=== PATIENT | female | born 1965 | race Caucasian/White ===

== ENCOUNTER → 2016-07-25 | Outpatient (CLI) | payer BC ==
--- NOTE | 2016-07-26 17:04 | Diagnostic Imaging Report ---
EXAMINATION: Left lower extremity duplex venous ultrasound. TECHNIQUE: DVT protocol. Multiple sonographic images with color Doppler and waveform interrogation were performed of the left lower extremity veins with compression and augmentation maneuvers. INDICATION: Left leg pain. FINDINGS: The left lower extremity veins from the groin to below the knee veins were examined with normal color-flow, compressibility and waveform demonstrated. The great saphenous vein is patent. There is a hypoechoic slightly heterogenous fluid collection seen abutting the posterior muscles in the upper calf into the medial aspect of the popliteal fossa measuring 11 x 1.7 x 4.4 CM, likely related to a ruptured Martinez's cyst. IMPRESSION: No evidence of DVT in the left lower extremity. Fluid collection posterior to the knee and the in the upper calf likely related to a ruptured Martinez's cyst. Dictated by: Dictated on workstation # [id number]
== END ==
LOC: RAD 11:59
PROVIDERS: ATTEND Nurse Practitioner Family
DX: R22.42 Localized swelling, mass and lump, left lower limb (principal); D68.2 Hereditary deficiency of other clotting factors

== ENCOUNTER → 2016-11-11 | Outpatient (CLI) | payer BC ==
--- NOTE | 2016-11-14 14:39 | Diagnostic Imaging Report ---
Bilateral screening mammogram 2D views with tomosynthesis. The current study was also evaluated with a Computer Aided Detection (CAD) system. INDICATION: Screening. No current complaints stated on the questionnaire. COMPARISON: 01/26/2016. FINDINGS: The breasts are composed of heterogeneously dense parenchyma which may decrease mammographic sensitivity. There is an asymmetry with apparent architectural distortion along the right MLO view posteriorly above the nipple line which appears to persist on the tomographic views. No definitive correlate on the CC projection. The left breast demonstrates no definite change. IMPRESSION: Focal compression views and ultrasound evaluation for focal asymmetry and question of architectural distortion along the central slightly superior aspect of the right MLO view. ACR BI-RADS Category 0: Incomplete. (Needs additional imaging evaluation). Result letter will be mailed to the patient. Note: At least 10% of breast cancer is not imaged by mammography. Dictated by: Dictated on workstation # [id number]
== END ==
LOC: RAD 10:35
PROVIDERS: ATTEND Nurse Practitioner Family
DX: Z12.31 Encounter for screening mammogram for malignant neoplasm of breast (principal)
CPT/HCPCS: 77067

== ENCOUNTER → 2016-12-19 | Outpatient (CLI) | payer BC ==
--- NOTE | 2016-12-19 21:19 | Diagnostic Imaging Report ---
Right breast ultrasound. INDICATION: Right breast asymmetry. FINDINGS: The four quadrants and retroareolar region of the right breast was scanned with no underlying abnormality seen. IMPRESSION: Negative study. Asymmetry seen on mammography is probably summation artifact of parenchyma. Six-month follow-up right mammogram is recommended to ensure no adverse development. ACR BI-RADS Category 3: Probably benign findings. Dictated by: Dictated on workstation # [id number]
--- NOTE | 2016-12-19 22:00 | Diagnostic Imaging Report ---
Diagnostic mammogram of the right breast with tomography. INDICATION: Asymmetry along the right MLO view with question of architecture distortion. FINDINGS: True lateral view and compression view with tomography is performed with less prominent asymmetry seen. It does not completely resolve, however, which may relate to the background dense parenchyma. IMPRESSION: Less prominent asymmetry along the right MLO view which may relate to summation artifact of parenchyma. Ultrasound evaluation pending. ACR BI-RADS Category 0: Incomplete. (Needs additional imaging evaluation). Dictated by: Dictated on workstation # [id number]
== END ==
LOC: RAD 07:46
PROVIDERS: ATTEND Nurse Practitioner Family
DX: N64.89 Other specified disorders of breast (principal)
CPT/HCPCS: 76641

== ENCOUNTER → 2017-07-14 | Outpatient (CLI) | payer BC ==
--- NOTE | 2017-07-14 17:57 | Diagnostic Imaging Report ---
Unilateral diagnostic right mammogram. INDICATION: Follow-up exam. This study was compared to the prior exams of 12/19/2016, 11/11/2016, 06/19/2015, and 09/19/2013. At this time, there are no current complaints. The current study was also evaluated with a Computer Aided Detection (CAD) system. FINDINGS: The previous exam did raise the question of an architectural distortion in the midportion of the right breast. The diagnostic mammogram and ultrasound exam performed on 12/19/2016 suggested that the asymmetric density was related to superimposition of the fibroglandular tissue. On this study, the overall appearance of the right breast does not seem to have changed significantly. The fibroglandular tissue in the right breast is dense and this does limit the sensitivity of this exam. A repeat ultrasound exam is pending for further study. IMPRESSION: There is no evidence for malignancy. Ultrasound is pending for further study. ACR BI-RADS Category 0: Incomplete. (Needs additional imaging evaluation). Result letter will be mailed to the patient. Note: At least 10% of breast cancer is not imaged by mammography. Dictated by: Dictated on workstation # [id number]
--- NOTE | 2017-07-14 18:00 | Diagnostic Imaging Report ---
EXAMINATION: Right breast ultrasound, complete. INDICATION: Abnormal mammogram. FINDINGS: The diagnostic mammogram and ultrasound exam performed on 12/19/2016 failed to show any sign of malignancy. The diagnostic mammogram performed earlier today indicated that the right breast seems stable. On this exam, there is still no discrete solid or cystic mass within the right breast. There is no shadowing to suggest architectural distortion either. I suspect that the abnormal density seen on the initial mammogram was secondary to superimposition of the fibroglandular tissue. IMPRESSION: 1. There is no evidence for malignancy. 2. The patient should have her annual bilateral mammogram on schedule in December/January of this year. ACR BI-RADS Category 3: Probably benign findings. Dictated by: Dictated on workstation # [id number]
== END ==
LOC: RAD 08:30
PROVIDERS: ATTEND Nurse Practitioner Family
DX: N64.89 Other specified disorders of breast (principal)
CPT/HCPCS: 76641

== ENCOUNTER 2017-11-22 06:28 | Outpatient (CLI) | payer BC ==
[~2017-11-22] VITALS: Ht 172.7 cm; Wt 83.9 kg
[2017-11-22] MEDS ORDERED: MULT-166 PO (10:03)
[2017-11-22] MEDS ORDERED: ASPI-586 PO (10:03)
[2017-11-22] MEDS ORDERED: CYCL5TAB PO (10:03)
[2017-11-22] MEDS ORDERED: FLUO10CA29 PO (10:03)
[2017-11-24] MEDS ORDERED: ACHD5005 PO (12:07)
== END 2017-11-22 10:13 | disposition home or self-care (01) ==
LOC: PREOP 06:28
PROVIDERS: ATTEND Surgery
DX: Z01.818 Encounter for other preprocedural examination (principal)

== ENCOUNTER 2017-11-24 10:13 | Day surgery (SDC) | payer BC ==
[~2017-11-24] VITALS: Ht 172.7 cm; Wt 83.9 kg
[~2017-11-24 10:13] MED LIST: ASPI-586 PO; CYCL5TAB PO; FLUO10CA29 PO; MULT-166 PO
[2017-11-24] MEDS ORDERED: LACTATED RINGERS 1,000 ML IV PRN (10:29)
[2017-11-24] MEDS ORDERED: ceFAZolin 2 GM IV Premixed 50 ML IV ONE (10:30)
[2017-11-24 10:40] VITALS: BP 107/77
--- NOTE | 2017-11-24 10:42 | Progress Note-Pre Operative ---
Pre-Operative Progress Note H&P Reviewed The H&P was reviewed, patient examined and no changes noted. Date Seen by Provider: Nov 03, 2017 Time Seen by Provider: 14:00 Date H&P Reviewed: Nov 24, 2017 Time H&P Reviewed: 10:41 Pre-Operative Diagnosis: Sebaceous cystpresternal area BERONICA DELVALLE MD Nov 24, 2017 10:42 am
[2017-11-24] MEDS ORDERED: CATHETER FLUSH 10 ML SYR IV PRN (10:45)
[2017-11-24] MEDS ORDERED: CEPH250T PO (10:49)
[2017-11-24] MEDS ORDERED: fentaNYL INJECTION 100 MCG/2 ML AMP ONE (11:23)
[2017-11-24] MEDS ORDERED: DEXAMETHASONE 10 MG/ML (DECADRON) 1 ML VIAL ONE (11:23)
[2017-11-24] MEDS ORDERED: ONDANSETRON 4 MG/2 ML (SDV) Z0FRAN ONE (11:23)
[2017-11-24] MEDS ORDERED: BUP/EPI 0.5% 1:200,000 (SENSORCAINE) 30 ML VIAL ONE (11:23)
[2017-11-24] MEDS ORDERED: MIDAZOLAM 2 MG/2 ML (VERSED) VIAL ONE (11:23)
[2017-11-24] MEDS ORDERED: LIDOCAINE PF 2% 5 ML (XYLOCAINE) VIAL ONE (11:23)
[2017-11-24] MEDS ORDERED: proPOfol 200 MG/20 ML (DIPRIVAN) VIAL IV ONE (11:23)
[2017-11-24] MEDS ORDERED: SEVOFLURANE (ULTANE) 15 ML INHAL SOLN ONE (11:27)
[2017-11-24] MEDS ORDERED: GLYCOPYRROLATE 0.2 MG/ML (ROBINUL) 2 ML VIAL ONE (11:45)
[2017-11-24] MEDS ORDERED: ACHD5005 PO (12:07)
--- NOTE | 2017-11-24 12:07 | Operative Report ---
Operative Report Date of Procedure/Surgery Nov 24, 2017 Surgeon (s) BERONICA DELVALLE MD Editor Producer (s): N/A Post-Operative Diagnosis Same Procedure Performed Excision Description of Procedure Anesthesia Type: General Estimated blood loss (mL): Minimal Specimen(s) collected/removed Sebaceous cyst Description of the Procedure Indication for the procedure: This lady presented with a sebaceous over the presternal region and requested excision. Informed consent was obtained after reviewing the operative details and complications of postoperative wound infection, hematoma etc. Description of the procedure: She was placed supine on the operative table and general anesthesia induced. Ancef was administered intravenously as prophylaxis against wound infection. The area was prepared and draped in the usual sterile manner. Preemptive analgesia was established using 0.5 percent Marcaine with epinephrine. An elliptical incision about 4 cm in length was made in a transverse fashion and the cyst excised intact. Hemostasis was achieved using cautery and the incision closed using 3-0 Vicryl for the dermal layer and 4-0 Vicryl for skin, in a subcuticular fashion. A nonadherent dressing was then applied. She tolerated the procedure well, was extubated in the operating room and taken to the recovery room in a stable condition. Findings of the Procedure see op report Allergies and Home Medications Allergies Coded Allergies: No Known Drug Allergies (Unverified , 11/22/17) Home Medications Aspirin 81 Mg Tablet.dr, 81 MG PO DAILY, (Reported) Cephalexin 250 Mg Tablet, 250 MG PO BID, (Reported) Fluoxetine HCl 10 Mg Capsule, 10 MG PO DAILY, (Reported) Multivitamin with Minerals 1 Each Tablet, 1 EACH PO DAILY, (Reported) Patient Home Medication List Home Medication List Reviewed: Yes BERONICA DELVALLE MD Nov 24, 2017 12:07 pm
--- NOTE | 2017-11-24 12:08 | Discharge Inst-Simple/Standard ---
Discharge Inst-Standard Discharge Medications New, Converted or Re-Newed RX: RX on Chart Patient Instructions/Follow Up Plan of Care/Instructions/FU: Dressings off in 48 hours. Follow-up if needed. No sutures to be removed Activity as Tolerated: Yes Discharge Diet: No Restrictions BERONICA DELVALLE MD Nov 24, 2017 12:08 pm
[2017-11-24] MEDS ORDERED: fentaNYL INJECTION 100 MCG/2 ML AMP IVP PRN (12:15)
[2017-11-24] MEDS ORDERED: ONDANSETRON 4 MG/2 ML (SDV) Z0FRAN IVP PRN (12:15)
[2017-11-24 13:05] VITALS: BP 103/58
[2017-11-24 13:35] VITALS: BP 103/58
[2017-11-24 14:05] VITALS: BP 101/67
--- NOTE | 2017-11-24 14:07 | Anesthesia-General Post-Op ---
General Patient Condition Mental Status/LOC: Same as Preop Cardiovascular: Satisfactory Nausea/Vomiting: Absent Respiratory: Satisfactory Pain: Controlled Complications: Absent Post Op Complications Complications None Follow Up Care/Instructions Patient Instructions None needed. Anesthesia/Patient Condition Patient Condition Patient is doing well, no complaints, stable vital signs, no apparent adverse anesthesia problems. No complications reported per nursing. EMANUEL GALLGAHER CRNA Nov 24, 2017 14:06
[2017-11-24 14:10] VITALS: BP 101/67
--- OUTSIDE RECORDS SUMMARY | 2017-11-24 18:15 | XMS REPORT | CCD ---
Author Author Brook Nolan Organization [facility] Address [address] [place] [address] Phone Care Team Providers Care Software Validation Technician Name Role Phone PP Unavailable CCM Unavailable Summary Purpose Interface Exchange Insurance Providers Payer name Policy type / Coverage type Covered libertarian ID Effective Begin Date Effective End Date Blue Cross Blue [facility] Blue Cross/Blue Shield [id number] 2016 Unknown Family history Runs in the family Diagnosis Age At Onset Bleeding disorders Unknown Colon cancer Unknown Breast cancer Unknown Mother Diagnosis Age At Onset Arthritis Unknown Father Diagnosis Age At Onset Diabetes mellitus Type 2 Unknown Arthritis Unknown Hypertension Unknown Social History Social History Element Codes Description Effective Dates Marital status Unknown August 08/21/2015 Number of children Unknown 5 08/21/2015 Employment Unknown 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 Active 07/25/2016 Unknown Pain in left leg ICD-9 : 729.5 ICD-10: M79.605 Active 07/25/2016 Unknown Encounter for general adult medical examination without abnormal findings ICD-9: V70.9 ICD-10: Z00.00 Active 08/20/2015 Unknown Problems Condition Codes Effective Dates Condition Status Allergic contact dermatitis due to plants, except food ICD-9: 692.6 ICD-10: L23.7 09/16/2016 Active Attention and concentration deficit ICD-9: 799.51 ICD-10: R41.840 04/28/2016 Active 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 07/25/2016 Active Pain in left leg ICD-9 : 729.5 ICD-10: M79.605 07/25/2016 Active Encounter for general adult medical examination without abnormal findings ICD-9: V70.9 ICD-10: Z00.00 08/20/2015 Active Medications Medication Codes Instructions Start Date Stop Date Status Fill Instructions Prozac 10 mg capsule RxNorm: 266658 1 Capsule(s) PO as needed for PMS symptoms 04/26/2017 09/22/2017 Active Adderall 5 mg tablet RxNorm: 174401 3 Tablet(s) (15mg) PO QAM and 2 Tablet (10mg) PO QPM 12/19/2016 01/17/2017 Inactive Prozac 10 mg capsule RxNorm: 810582 1 Capsule(s) PO as needed for PMS symptoms 11/23/2016 04/21/2017 Inactive Adderall 5 mg tablet RxNorm: 613188 3 Tablet(s) (15mg) PO QAM and 2 Tablet (10mg) PO QPM 10/18/2016 11/16/2016 Inactive Prozac 10 mg capsule RxNorm: 560762 1 Capsule(s) PO as needed for PMS symptoms 10/18/2016 11/16/2016 Inactive Adderall 5 mg tablet RxNorm: 920324 3 Tablet(s) (15mg) PO QAM and 2 Tablet (10mg) PO QPM 09/16/2016 10/15/2016 Inactive Adderall 5 mg tablet RxNorm: 254039 3 Tablet(s) (15mg) PO QAM and 1 Tablet (5mg) PO QPM 07/25/2016 08/23/2016 Inactive Adderall 5 mg tablet RxNorm: 481358 3 Tablet(s) (15mg) PO QAM and 1 Tablet (5mg) PO QPM 06/20/2016 07/24/2016 Inactive Adderall 5 mg tablet RxNorm: 283210 3 Tablet(s) 15mg PO QAM and 1 tab 5mg in the pm 04/29/2016 05/28/2016 Inactive Adderall 5 mg tablet RxNorm: 811325 3 Tablet(s) 15mg PO QAM and 1 tab 5mg in the pm 03/25/2016 04/23/2016 Inactive Adderall 5 mg tablet RxNorm: 120283 3 Tablet(s) 15mg PO QAM and 1 tab 5mg in the pm 02/17/2016 03/17/2016 Inactive Adderall 5 mg tablet RxNorm: 332158 3 Tablet(s) 15mg PO QAM and 1 tab 5mg in the pm 01/20/2016 02/16/2016 Inactive Adderall 5 mg tablet RxNorm: 499180 3 Tablet(s) 15mg PO QAM and 1 tab 5mg in the pm 12/16/2015 01/14/2016 Inactive Adderall 5 mg tablet RxNorm: 542819 3 Tablet(s) 15mg PO QAM and 1 tab 5mg in the pm 11/11/2015 12/10/2015 Inactive Adderall 10 mg tablet RxNorm: 180619 1 Tablet(s) PO daily 201510/20/2015 Inactive Adderall 10 mg tablet RxNorm: 653612 1 Tablet(s) PO daily 201510/08/2015 Inactive Adderall 10 mg tablet RxNorm: 887487 1 Tablet(s) PO daily 201509/08/2015 Inactive Adderall 5 mg tablet RxNorm: 266442 1 Tablet(s) PO daily 201508/31/2015 Inactive biotin oral RxNorm: 1588 oral No Start Date Active Aspirin Low Dose 81 mg tablet,delayed release RxNorm: 437396 1 Tablet(s) PO daily No Start Date Active Chi-Mag Zinc II oral RxNorm: 4018 oral No Start Date Active multivitamin tablet RxNorm: 1 Tablet(s) PO daily No Start Date Active magnesium oral RxNorm : 6574 oral No Start Date Active Prozac 10 mg capsule RxNorm: 214893 1 Capsule(s) PO as needed for PMS symptoms No Start Date 09/12/2016 Inactive Medication Administered No Medication Administered data Immunizations No Immunization data Assessments Condition Codes Effective Dates Attention and concentration deficit ICD-10: R41.840 ICD-9: 799.51 09/16/2016 Allergic contact dermatitis due to plants, except food ICD- 10: L23.7 ICD-9: 692.6 09/16/2016 Pain in left leg ICD-10: M79.605 ICD-9: 729.5 07/25/2016 Other specified coagulation defects ICD-10: D68.8 ICD-9: 286.9 07/25/2016 Encounter for general adult medical examination without abnormal findings ICD-10: Z00.00 ICD-9: V70.9 08/21/2015 Reason For Visit Reason For Visit Effective Dates Notes disturbances of thinking 09/16/2016 lower leg pain 07/25/2016 disturbances of thinking 04/29/2016 disturbances of thinking 09/25/2015 memory loss 08/21/2015 Results Observation Observation Code Item Item Code Result Date Tsh Ord6 hTSH II 2.56 uIU/mL 08/25/2015 Comp Metabolic Omg584 NA 137 mEq/L 08/25/2015 Comp Metabolic Xek407 K 4.3 mEq/L 08/25/2015 Comp Metabolic Cjk576 CL 104 mEq/L 08/25/2015 Comp Metabolic Sdt052 CO2 30.0 mEq/L 08/25/2015 Comp Metabolic Top982 ANION GAP 7 08/25/2015 Comp Metabolic Aqd467 GLUCOSE 95 mg/dL 08/25/2015 Comp Metabolic Rfq054 Creat 0.9 mg/dL 08/25/2015 Comp Metabolic Bdm163 eGFR 75 ml/min/1.73m2 08/25/2015 Comp Metabolic Asg934 BUN 13 mg/dL 08/25/2015 Comp Metabolic Gjr620 B/C Ratio 15.1 Ratio 08/25/2015 Comp Metabolic Cwn193 CALCIUM 9.2 mg/dL 08/25/2015 Comp Metabolic Mhq866 ALK PHOS 45 U/L 08/25/2015 Comp Metabolic Zkq905 AST(SGOT) 18 U/L 08/25/2015 Comp Metabolic Lyb009 ALT(SGPT) 14 U/L 08/25/2015 Comp Metabolic Vgi954 BILI T 0.6 mg/dL 08/25/2015 Comp Metabolic Gmt191 ALBUMIN 4.2 g/dL 08/25/2015 Comp Metabolic Niv618 TPRO 6.5 g/dL 08/25/2015 Comp Metabolic Ngp370 GLOB 2.4 g/dL 08/25/2015 Comp Metabolic Vhz891 A/G Ratio 1.8 Ratio 08/25/2015 Comp Metabolic Jcp687 Osmo 274 mOsmo 08/25/2015 Lipid Ord30 CHOL 189 mg/dL 08/25/2015 Lipid Ord30 HDL 76.0 mg/dl 08/25/2015 Lipid Ord30 TRIG 57 mg/dL 08/25/2015 Lipid Ord30 LDL 102 mg/dL 08/25/2015 Lipid Ord30 C/HDL 2.5 Ratio 08/25/2015 Cbc With Differential Ord2 WBC 5.21 K/ul 08/25/2015 Cbc With Differential Ord2 RBC 4.21 M/ul 08/25/2015 Cbc With Differential Ord2 HGB 13.7 g/dl 08/25/2015 Cbc With Differential Ord2 HCT 40.6 % 08/25/2015 Cbc With Differential Ord2 Neut% 52.2 % 08/25/2015 Cbc With Differential Ord2 Lymph% 35.9 % 08/25/2015 Cbc With Differential Ord2 MCV 96.4 fl 08/25/2015 Cbc With Differential Ord2 Bremer% 10.2 % 08/25/2015 Cbc With Differential Ord2 MCH 32.5 pg 08/25/2015 Cbc With Differential Ord2 MCHC 33.7 pg 08/25/2015 Cbc With Differential Ord2 Eos% 1.3 % 08/25/2015 Cbc With Differential Ord2 PLT 198 K/ul 08/25/2015 Cbc With Differential Ord2 Baso% 0.4 % 08/25/2015 Cbc With Differential Ord2 RDW 12.8 % 08/25/2015 Cbc With Differential Ord2 Neut ABS# 2.72 K/ul 08/25/2015 Cbc With Differential Ord2 Lymph ABS# 1.87 K/ul 08/25/2015 Cbc With Differential Ord2 Bremer ABS# 0.5 K/ul 08/25/2015 Cbc With Differential Ord2 Eos ABS# 0.1 K/ul 08/25/2015 Cbc With Differential Ord2 Baso ABS# 0.0 K/ul 08/25/2015 Cbc With Differential Ord2 New Analyzer Notice Please note new ref ranges starting 04-22-2015 due to implemntation of new five part differential hematolgy analyzer. 08/25/2015 Review of Systems System Result Effective Dates Constitutional No recent illness 2016 Constitutional No chills 09/16/2016 Constitutional No diaphoresis 09/16/2016 Constitutional No fever 09/16/2016 Constitutional No insomnia 09/16/2016 Eyes No eye erythema 09/16/2016 Ears/Nose/Throat/Neck No nasal allergies 09/16/2016 Ears/Nose/Throat/Neck No nasal discharge 09/16/2016 Ears/Nose/Throat/Neck No postnasal drip 09/16/2016 Ears/Nose/Throat/Neck No sinus congestion 09/16/2016 Cardiovascular No chest pain/pressure 12/2016 Cardiovascular No dyspnea 09/16/2016 Respiratory No cough 09/16/2016 Respiratory No dyspnea 09/16/2016 Gastrointestinal No abdominal pain 2016 Gastrointestinal No vomiting 09/16/2016 Gastrointestinal No nausea 09/16/2016 Musculoskeletal joint complaint 2016 Dermatologic No rash 09/16/2016 Neurologic No alteration of consciousness 09/16/2016 Neurologic No mental status change 2016 Constitutional No recent illness 2016 Constitutional No chills 07/25/2016 Constitutional No diaphoresis 07/25/2016 Constitutional No fever 07/25/2016 Eyes No eye erythema 07/25/2016 Ears/Nose/Throat/Neck No nasal allergies 07/25/2016 Ears/Nose/Throat/Neck No nasal discharge 07/25/2016 Cardiovascular No chest pain/pressure Respiratory No dyspnea 07/25/2016 Musculoskeletal joint complaint 2016 Dermatologic No rash 07/25/2016 Neurologic No alteration of consciousness 07/25/2016 Neurologic No mental status change 2016 Constitutional No recent illness 2016 Constitutional No fever 04/29/2016 Eyes No eye erythema 04/29/2016 Ears/Nose/Throat/Neck No nasal allergies 04/29/2016 Ears/Nose/Throat/Neck No nasal discharge 04/29/2016 Cardiovascular No chest pain/pressure Cardiovascular No dyspnea 04/29/2016 Respiratory No cough 04/29/2016 Respiratory No dyspnea 04/29/2016 Gastrointestinal No abdominal pain 2016 Musculoskeletal No joint complaint 2016 Dermatologic No rash 04/29/2016 Dermatologic No sores 04/29/2016 Neurologic No alteration of consciousness 04/29/2016 Neurologic No mental status change 2016 Cardiovascular No palpitations 2016 Constitutional No recent illness 2015 Constitutional No fever 09/25/2015 Eyes No eye erythema 09/25/2015 Ears/Nose/Throat/Neck No nasal allergies 09/25/2015 Ears/Nose/Throat/Neck No nasal discharge 09/25/2015 Cardiovascular No chest pain/pressure Cardiovascular No dyspnea 09/25/2015 Respiratory No cough 09/25/2015 Respiratory No dyspnea 09/25/2015 Gastrointestinal No abdominal pain 2015 Musculoskeletal No joint complaint 2015 Dermatologic No rash 09/25/2015 Dermatologic No sores 09/25/2015 Neurologic No alteration of consciousness 09/25/2015 Neurologic No mental status change 2015 Constitutional No recent illness 2015 Constitutional No chills 08/21/2015 Constitutional No diaphoresis 08/21/2015 Constitutional No fatigue 08/21/2015 Constitutional No fever 08/21/2015 Constitutional No insomnia 08/21/2015 Constitutional No malaise 08/21/2015 Eyes No eye erythema 08/21/2015 Eyes No eye pain 08/21/2015 Ears/Nose/Throat/Neck No nasal allergies 08/21/2015 Ears/Nose/Throat/Neck No nasal discharge 08/21/2015 Ears/Nose/Throat/Neck No otalgia 2015 Ears/Nose/Throat/Neck No headache 2015 Ears/Nose/Throat/Neck No postnasal drip 08/21/2015 Ears/Nose/Throat/Neck No sinus congestion 08/21/2015 Ears/Nose/Throat/Neck No sore throat Cardiovascular No chest pain/pressure Cardiovascular No dyspnea 08/21/2015 Cardiovascular No edema 08/21/2015 Respiratory No cough 08/21/2015 Respiratory No chest congestion 2015 Respiratory No dyspnea 08/21/2015 Gastrointestinal No abdominal pain 2015 Gastrointestinal constipation 08/21/2015 Gastrointestinal No diarrhea 08/21/2015 Gastrointestinal No vomiting 08/21/2015 Gastrointestinal No nausea 08/21/2015 Genitourinary/Nephrology No dysuria 08/20 Musculoskeletal No joint complaint 2015 Dermatologic No rash 08/21/2015 Dermatologic No sores 08/21/2015 Neurologic No alteration of consciousness 08/21/2015 Neurologic No mental status change 2015 Physical Exam Exam Name System Name Item Name Status Result Effective Dates Notes Full Exam - General 1994 Constitutional general appearance Overall: well developed 09/16/2016 None Full Exam - General 1994 Constitutional general appearance Overall: in no acute distress 09/16/2016 None Full Exam - General 1994 Constitutional general appearance Overall: well nourished 09/16/2016 None Full Exam - General 1994 Eyes conjunctiva /eyelids Overall: conjunctiva clear 09/16/2016 None Full Exam - General 1994 Eyes conjunctiva /eyelids Overall: eyelids normal 09/16/2016 None Full Exam - General 1994 Ears/Nose/Throat lips/teeth/gingiva Overall: benign lips 09/16/2016 None Full Exam - General 1994 Ears/Nose/Throat oral cavity/pharynx/larynx Overall: oral mucosa clear 09/16/2016 None Full Exam - General 1994 Ears/Nose/Throat oral cavity/pharynx/larynx Overall: oropharyngeal mucosa clear 09/16/2016 None Full Exam - General 1994 Respiratory auscultation Overall: breath sounds clear bilaterally 09/16/2016 None Full Exam - General 1994 Respiratory respiratory effort/rhythm Overall: no retractions 09/16/2016 None Full Exam - General 1994 Respiratory respiratory effort/rhythm Overall: normal rate 09/16/2016 None Full Exam - General 1994 Cardiovascular auscultation of heart Overall: regular rate 09/16/2016 None Full Exam - General 1994 Cardiovascular auscultation of heart Overall: normal heart sounds 09/16/2016 None Full Exam - General 1994 Abdomen abdominal exam Overall: normal bowel sounds 09/16/2016 None Full Exam - General 1994 Musculoskeletal head and neck Overall: head atraumatic 09/16/2016 None Full Exam - General 1994 Musculoskeletal gait and station Overall: normal gait 09/16/2016 None Full Exam - General 1994 Musculoskeletal gait and station Overall: normal station 09/16/2016 None Full Exam - General 1994 Integument inspection of skin Location: right arm 09/16/2016 wrist Full Exam - General 1994 Integument inspection of skin Location: left arm 09/16/2016 wrist Full Exam - General 1994 Integument inspection of skin Rash/Lesions: vesicle 09/16/2016 None Full Exam - General 1994 Integument inspection of skin Pigmentation: erythematous 09/16/2016 None Full Exam - General 1994 Integument inspection of skin Consistency: dry 09/16/2016 None Full Exam - General 1994 Neurologic cranial nerves Overall: crainial nerves 2 - 12 grossly intact 09/16/2016 None Full Exam - General 1994 Psychiatric orientation/consciousness Overall: oriented to person, place and time 09/16/2016 None Full Exam - General 1994 Psychiatric mood and affect Overall: normal mood and affect 09/16/2016 None Full Exam - General 1994 Psychiatric appearance Overall: well-groomed, good eye contact 09/16/2016 None Full Exam - General 1994 Constitutional general appearance Overall: well developed 07/25/2016 None Full Exam - General 1994 Constitutional general appearance Overall: in no acute distress 07/25/2016 None Full Exam - General 1994 Constitutional general appearance Overall: well nourished 07/25/2016 None Full Exam - General 1994 Eyes conjunctiva /eyelids Overall: conjunctiva clear 07/25/2016 None Full Exam - General 1994 Eyes conjunctiva /eyelids Overall: eyelids normal 07/25/2016 None Full Exam - General 1994 Ears/Nose/Throat lips/teeth/gingiva Overall: benign lips 07/25/2016 None Full Exam - General 1994 Ears/Nose/Throat oral cavity/pharynx/larynx Overall: oral mucosa clear 07/25/2016 None Full Exam - General 1994 Respiratory respiratory effort/rhythm Overall: no retractions 07/25/2016 None Full Exam - General 1994 Respiratory respiratory effort/rhythm Overall: normal rate 07/25/2016 None Full Exam - General 1994 Respiratory auscultation Overall: breath sounds clear bilaterally 07/25/2016 None Full Exam - General 1994 Cardiovascular auscultation of heart Overall: regular rate 07/25/2016 None Full Exam - General 1994 Cardiovascular auscultation of heart Overall: normal heart sounds 07/25/2016 None Full Exam - General 1994 Musculoskeletal lower extremity Inspection - lower leg: swelling 07/25/2016 None Full Exam - General 1994 Musculoskeletal head and neck Overall: head atraumatic 07/25/2016 None Full Exam - General 1994 Neurologic cranial nerves Overall: crainial nerves 2 - 12 grossly intact 07/25/2016 None Full Exam - General 1994 Psychiatric orientation/consciousness Overall: oriented to person, place and time 07/25/2016 None Full Exam - General 1994 Psychiatric mood and affect Overall: normal mood and affect 07/25/2016 None Full Exam - General 1994 Psychiatric appearance Overall: well-groomed, good eye contact 07/25/2016 None Full Exam - General 1994 Constitutional general appearance Overall: well developed 04/29/2016 None Full Exam - General 1994 Constitutional general appearance Overall: in no acute distress 04/29/2016 None Full Exam - General 1994 Constitutional general appearance Overall: well nourished 04/29/2016 None Full Exam - General 1994 Eyes conjunctiva /eyelids Overall: conjunctiva clear 04/29/2016 None Full Exam - General 1994 Eyes conjunctiva /eyelids Overall: eyelids normal 04/29/2016 None Full Exam - General 1994 Ears/Nose/Throat lips/teeth/gingiva Overall: benign lips 04/29/2016 None Full Exam - General 1994 Ears/Nose/Throat oral cavity/pharynx/larynx Overall: oral mucosa clear 04/29/2016 None Full Exam - General 1994 Respiratory auscultation Overall: breath sounds clear bilaterally 04/29/2016 None Full Exam - General 1994 Respiratory respiratory effort/rhythm Overall: no retractions 04/29/2016 None Full Exam - General 1994 Respiratory respiratory effort/rhythm Overall: normal rate 04/29/2016 None Full Exam - General 1994 Cardiovascular auscultation of heart Overall: regular rate 04/29/2016 None Full Exam - General 1994 Cardiovascular auscultation of heart Overall: normal heart sounds 04/29/2016 None Full Exam - General 1994 Musculoskeletal spine, ribs and pelvis Overall: good posture 04/29/2016 None Full Exam - General 1994 Musculoskeletal gait and station Overall: normal gait 04/29/2016 None Full Exam - General 1994 Musculoskeletal gait and station Overall: normal station 04/29/2016 None Full Exam - General 1994 Neurologic gait Overall: no ataxia, no unsteadiness 04/29/2016 None Full Exam - General 1994 Neurologic cranial nerves Overall: crainial nerves 2 - 12 grossly intact 04/29/2016 None Full Exam - General 1994 Psychiatric orientation/consciousness Overall: oriented to person, place and time 04/29/2016 None Full Exam - General 1994 Psychiatric mood and affect Overall: normal mood and affect 04/29/2016 None Full Exam - General 1994 Psychiatric appearance Overall: well-groomed, good eye contact 04/29/2016 None Full Exam - General 1994 Cardiovascular extremities Overall: no clubbing 04/29/2016 None Full Exam - General 1994 Musculoskeletal head and neck Overall: head atraumatic 04/29/2016 None Full Exam - General 1994 Constitutional general appearance Overall: well developed 09/25/2015 None Full Exam - General 1994 Constitutional general appearance Overall: in no acute distress 09/25/2015 None Full Exam - General 1994 Constitutional general appearance Overall: well nourished 09/25/2015 None Full Exam - General 1994 Eyes conjunctiva /eyelids Overall: conjunctiva clear 09/25/2015 None Full Exam - General 1994 Eyes conjunctiva /eyelids Overall: cornea clear 09/25/2015 None Full Exam - General 1994 Eyes conjunctiva /eyelids Overall: eyelids normal 09/25/2015 None Full Exam - General 1994 Ears/Nose/Throat lips/teeth/gingiva Overall: benign lips 09/25/2015 None Full Exam - General 1994 Ears/Nose/Throat lips/teeth/gingiva Overall: normal dentition 09/25/2015 None Full Exam - General 1994 Ears/Nose/Throat oral cavity/pharynx/larynx Overall: oral mucosa clear 09/25/2015 None Full Exam - General 1994 Respiratory auscultation Overall: breath sounds clear bilaterally 09/25/2015 None Full Exam - General 1994 Respiratory respiratory effort/rhythm Overall: no retractions 09/25/2015 None Full Exam - General 1994 Respiratory respiratory effort/rhythm Overall: normal rate 09/25/2015 None Full Exam - General 1994 Cardiovascular auscultation of heart Overall: regular rate 09/25/2015 None Full Exam - General 1994 Cardiovascular auscultation of heart Overall: normal heart sounds 09/25/2015 None Full Exam - General 1994 Musculoskeletal spine, ribs and pelvis Overall: good posture 09/25/2015 None Full Exam - General 1994 Musculoskeletal gait and station Overall: normal gait 09/25/2015 None Full Exam - General 1994 Musculoskeletal gait and station Overall: normal station 09/25/2015 None Full Exam - General 1994 Integument inspection of skin Overall: no rash, lesions 09/25/2015 None Full Exam - General 1994 Neurologic gait Overall: no ataxia, no unsteadiness 09/25/2015 None Full Exam - General 1994 Neurologic cranial nerves Overall: crainial nerves 2 - 12 grossly intact 09/25/2015 None Full Exam - General 1994 Psychiatric orientation/consciousness Overall: oriented to person, place and time 09/25/2015 None Full Exam - General 1994 Psychiatric mood and affect Overall: normal mood and affect 09/25/2015 None Full Exam - General 1994 Psychiatric appearance Overall: well-groomed, good eye contact 09/25/2015 None Full Exam - General 1994 Eyes pupils and irises Overall: pupils equal, round, reactive to light and accomodation 09/25/2015 None Full Exam - General 1994 Constitutional general appearance Overall: well developed 08/21/2015 None Full Exam - General 1994 Constitutional general appearance Overall: in no acute distress 08/21/2015 None Full Exam - General 1994 Constitutional general appearance Overall: well nourished 08/21/2015 None Full Exam - General 1994 Eyes conjunctiva /eyelids Overall: conjunctiva clear 08/21/2015 None Full Exam - General 1994 Eyes conjunctiva /eyelids Overall: cornea clear 08/21/2015 None Full Exam - General 1994 Eyes conjunctiva /eyelids Overall: eyelids normal 08/21/2015 None Full Exam - General 1994 Eyes pupils and irises Overall: pupils equal, round, reactive to light and accomodation 08/21/2015 None Full Exam - General 1994 Ears/Nose/Throat lips/teeth/gingiva Overall: benign lips 08/21/2015 None Full Exam - General 1994 Ears/Nose/Throat lips/teeth/gingiva Overall: normal dentition 08/21/2015 None Full Exam - General 1994 Ears/Nose/Throat otoscopic exam Overall: external auditory canals clear 08/21/2015 None Full Exam - General 1994 Ears/Nose/Throat otoscopic exam Overall: tympanic membranes clear 08/21/2015 None Full Exam - General 1994 Ears/Nose/Throat oral cavity/pharynx/larynx Overall: oral mucosa clear 08/21/2015 None Full Exam - General 1994 Ears/Nose/Throat oral cavity/pharynx/larynx Overall: oropharyngeal mucosa clear 08/21/2015 None Full Exam - General 1994 Ears/Nose/Throat oral cavity/pharynx/larynx Overall: no masses 08/21/2015 None Full Exam - General 1994 Respiratory auscultation Overall: breath sounds clear bilaterally 08/21/2015 None Full Exam - General 1994 Respiratory respiratory effort/rhythm Overall: no retractions 08/21/2015 None Full Exam - General 1994 Respiratory respiratory effort/rhythm Overall: normal rate 08/21/2015 None Full Exam - General 1994 Cardiovascular extremities Overall: no clubbing 08/21/2015 None Full Exam - General 1994 Cardiovascular auscultation of heart Overall: regular rate 08/21/2015 None Full Exam - General 1994 Cardiovascular auscultation of heart Overall: normal heart sounds 08/21/2015 None Full Exam - General 1994 Abdomen abdominal exam Overall: no tenderness 08/21/2015 None Full Exam - General 1994 Abdomen abdominal exam Overall: normal bowel sounds 08/21/2015 None Full Exam - General 1994 Lymphatic neck nodes Overall: anterior cervical chain benign 08/21/2015 None Full Exam - General 1994 Lymphatic neck nodes Overall: posterior cervical chain benign 08/21/2015 None Full Exam - General 1994 Musculoskeletal gait and station Overall: normal gait 08/21/2015 None Full Exam - General 1994 Musculoskeletal gait and station Overall: normal station 08/21/2015 None Full Exam - General 1994 Musculoskeletal spine, ribs and pelvis Overall: good posture 08/21/2015 None Full Exam - General 1994 Musculoskeletal head and neck Overall: head atraumatic 08/21/2015 None Full Exam - General 1994 Integument inspection of skin Overall: no rash, lesions 08/21/2015 None Full Exam - General 1994 Neurologic gait Overall: no ataxia, no unsteadiness 08/21/2015 None Full Exam - General 1994 Neurologic cranial nerves Overall: crainial nerves 2 - 12 grossly intact 08/21/2015 None Full Exam - General 1994 Psychiatric orientation/consciousness Overall: oriented to person, place and time 08/21/2015 None Full Exam - General 1994 Psychiatric mood and affect Overall: normal mood and affect 08/21/2015 None Full Exam - General 1994 Psychiatric appearance Overall: well-groomed, good eye contact 08/21/2015 None Procedures No Procedures data Vital Signs Date Vital 09/16/2016 Blood Pressure 1: 124/80 Code : 8480-6 BMI: 26.5 Code : 73333-9 Heart Rate 1 : 76 bpm Height: 5'7" SpO2: 99% Weight: 169 lbs 07/25/2016 Blood Pressure 1: 122/70 Code : 8480-6 Heart Rate 1: 76 bpm Height: 5'7" SpO2: 98% Weight: 04/29/2016 Blood Pressure 1: 112/66 Code : 8480-6 Heart Rate 1: 78 bpm Height: SpO2: 98% Weight: 09/25/2015 Blood Pressure 1: 104/68 Code : 8480-6 BMI: 27.1 Code : 75281-5 Heart Rate 1 : 77 bpm Height: 5'7" SpO2: 99% Weight: 173 lbs 08/21/2015 Blood Pressure 1: 110/70 Code : 8480-6 BMI: 27.9 Code : 84442-9 Heart Rate 1 : 74 bpm Height: 5'7" SpO2: 98% Weight: 178 lbs Functional Status No Functional Status data History of Present Illness Symptom Name Status Result Effective Date Notes disturbances of thinking Quality chronic 09/16/2016 None disturbances of thinking Quality intermittent 09/16/2016 None disturbances of thinking Onset and Resolution ongoing 09/16/2016 None disturbances of thinking Limitation on Activities does not limit activities 09/16/2016 None disturbances of thinking Pertinent Findings Denies fever 09/16/2016 None lower leg pain Location on the left 07/25/2016 None lower leg pain Quality cramping 07/25/2016 None lower leg pain Quality dull pain 07/25/2016 None lower leg pain Onset and Resolution sudden in onset 07/25/2016 None lower leg pain Onset of Symptom 3 days ago 07/25/2016 None lower leg pain Frequency of Episodes daily 07/25/2016 None lower leg pain Pertinent Findings limping 07/25/2016 None lower leg pain Pertinent Findings pain with movement 07/25/2016 None lower leg pain Pertinent Findings swelling 07/25/2016 None disturbances of thinking Quality chronic 04/29/2016 None disturbances of thinking Quality intermittent 04/29/2016 None disturbances of thinking Onset and Resolution ongoing 04/29/2016 None disturbances of thinking Limitation on Activities does not limit activities 04/29/2016 None disturbances of thinking Pertinent Findings Denies fever 04/29/2016 None disturbances of thinking Quality chronic 09/25/2015 None disturbances of thinking Quality intermittent 09/25/2015 None disturbances of thinking Onset and Resolution ongoing 09/25/2015 None disturbances of thinking Limitation on Activities does not limit activities 09/25/2015 None disturbances of thinking Pertinent Findings Denies fever 09/25/2015 None memory loss Onset of Symptom years ago 08/21/2015 None memory loss Quality worsening 08/21/2015 None Advance Directives No Advance Directive data Encounters Encounter Performer Location Codes Date 77726 EST. PATIENT, LEVEL IV Diagnosis: Attention and concentration deficit[ICD10: R41.840] Diagnosis: Allergic contact dermatitis due to plants, except food[ICD10: L23.7] [facility] CPT-4: 60935 09/16/2016 07729 EST. PATIENT, LEVEL IV Diagnosis: Pain in left leg[ICD10: M79.605] Diagnosis: Other specified coagulation defects[ICD10: D68.8] [facility] CPT-4: 07940 07/25/2016 44834 EST. PATIENT, LEVEL IV Diagnosis: Attention and concentration deficit[ICD10: R41.840] [facility] CPT-4: 71009 04/29/2016 [id number] EST. PATIENT, LEVEL IV Diagnosis: Attention and concentration deficit[ICD10: R41.840] [facility] CPT-4: 08939 09/25/2015 ([id number]) OFFICE VISIT, NEW - LEVEL 4 Diagnosis: Encounter for general adult medical examination without abnormal findings[ICD10: Z00.00] Diagnosis: Attention and concentration deficit[ICD10: R41.840] [facility] CPT-4: 06298 08/21/2015 Plan of Care Planned Activity Notes Codes Status Date Visit Plan: ADHD - medication working well for treatment of the pt's medical condition and the pt is to continue with current medication for treatment of the symptoms of ADHD. The pt is to call if they notice palpitations, rapid weight loss, severe insomnia that does improve. Pt is to call for any acute concerns, or if the medication does not seem to be working for improvement of the ADHD symptoms. Pt is aware of risk associated with medication use, and the danger of the medication if in the hands of someone to whom the medication was not prescribed. Poison Argelia - pt is to use topical treatments as directed. Pt is cleanse clothing in hot water with soap, and call if symptoms do not improve or if they worsen. 09/16/2016 [id number] [facility] 09/16/2016 Patient Education: Patient Medication Summary Completed 09/16/2016 Patient Education: Obesity Completed 09/16/2016 Care Plan: VASCULAR STUDY Pending 08/18/2016 Visit Plan: Left leg swelling - Pt has a personal history of Factor V Leiden - will order US - pt is to notify clinic if symptoms do not improve, if they worsen, or with any questions or concerns. 07/25/2016 [id number] ([facility] min[facility] Moderate 07/25/2016 Patient Education: Patient Medication Summary Completed 07/25/2016 Visit Plan: ADHD - medication working well for treatment of the pt's medical condition and the pt is to continue with current medication for treatment of the symptoms of ADHD. The pt is to call if they notice palpitations, rapid weight loss, severe insomnia that does improve. Pt is to call for any acute concerns, or if the medication does not seem to be working for improvement of the ADHD symptoms. Pt is aware of risk associated with medication use, and the danger of the medication if in the hands of someone to whom the medication was not prescribed. 04/29/2016 Appointment: Brook Nolan WPtel: [phone] [id number] (30 min) Complex 04/29/2016 Patient Education: Patient Medication Summary Completed 04/29/2016 Visit Plan: ADHD - medication working well for treatment of the pt's medical condition and the pt is to continue with current medication for treatment of the symptoms of ADHD. The pt is to call if they notice palpitations, rapid weight loss, severe insomnia that does improve. Pt is to call for any acute concerns, or if the medication does not seem to be working for improvement of the ADHD symptoms. Pt is aware of risk associated with medication use, and the danger of the medication if in the hands of someone to whom the medication was not prescribed. 09/25/2015 App[facility]ment[facility] [phone] [phone] ([facility] min[facility] Complex 09/25/2015 Patient Education: Patient Medication Summary Completed 09/25/2015 Visit Plan: ADHD - pt is to start on stimulant medication for treatment of the symptoms of ADHD. The pt is to call if they notice palpitations, rapid weight loss, severe insomnia that does not start to improve after 2-3 days on the medication. Pt is to call for any acute concerns, or if the medication does not seem to be working for improvement of the ADHD symptoms. Pt is aware of risk associated with medication use, and the danger of the medication if in the hands of someone to whom the medication was not prescribed. Well Adult - pt was counseled about diet, exercise, and encouraged to follow a heart healthy diet and increase activity level. The patient was instructed to RTC yearly for well adult exams and PRN for acute illnesses. The pt was also instructed to have yearly labs for check of cholesterol, thyroid, chem panel, CBC, and renal functioning. 08/21/2015 Patient Education: Patient Medication Summary Completed 08/21/2015 Patient Education: Obesity Completed 08/21/2015 Instructions Comment . Left leg swelling - Pt has a personal history of Factor V Leiden - will order US - pt is to notify clinic if symptoms do not improve, if they worsen, or with any questions or concerns. . ADHD - medication working well for treatment of the pt's medical condition and the pt is to continue with current medication for treatment of the symptoms of ADHD. The pt is to call if they notice palpitations, rapid weight loss, severe insomnia that does improve. Pt is to call for any acute concerns, or if the medication does not seem to be working for improvement of the ADHD symptoms. Pt is aware of risk associated with medication use, and the danger of the medication if in the hands of someone to whom the medication was not prescribed. call if you notice palpitations, rapid weight loss, severe insomnia that does not start to improve after 2-3 days on the medication . ADHD - pt is to start on stimulant medication for treatment of the symptoms of ADHD. The pt is to call if they notice palpitations, rapid weight loss, severe insomnia that does not start to improve after 2-3 days on the medication. Pt is to call for any acute concerns, or if the medication does not seem to be working for improvement of the ADHD symptoms. Pt is aware of risk associated with medication use, and the danger of the medication if in the hands of someone to whom the medication was not prescribed. Well Adult - pt was counseled about diet, exercise, and encouraged to follow a heart healthy diet and increase activity level. The patient was instructed to RTC yearly for well adult exams and PRN for acute illnesses. The pt was also instructed to have yearly labs for check of cholesterol, thyroid, chem panel, CBC, and renal functioning. . ADHD - medication working well for treatment of the pt's medical condition and the pt is to continue with current medication for treatment of the symptoms of ADHD. The pt is to call if they notice palpitations, rapid weight loss, severe insomnia that does improve. Pt is to call for any acute concerns, or if the medication does not seem to be working for improvement of the ADHD symptoms. Pt is aware of risk associated with medication use, and the danger of the medication if in the hands of someone to whom the medication was not prescribed. . ADHD - medication working well for treatment of the pt's medical condition and the pt is to continue with current medication for treatment of the symptoms of ADHD. The pt is to call if they notice palpitations, rapid weight loss, severe insomnia that does improve. Pt is to call for any acute concerns, or if the medication does not seem to be working for improvement of the ADHD symptoms. Pt is aware of risk associated with medication use, and the danger of the medication if in the hands of someone to whom the medication was not prescribed. Poison Argelia - pt is to use topical treatments as directed. Pt is cleanse clothing in hot water with soap, and call if symptoms do not improve or if they worsen.
--- OUTSIDE RECORDS SUMMARY | 2017-11-24 18:15 | XMS REPORT | CCD ---
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 Unknown Has never used illegal drugs 08/21/2015 Allergies, Adverse Reactions, Alerts Substance Reaction Codes Entered Date Inactivated Date Status NO KNOWN DRUG ALLERGIES Unknown 08/21/2015 No Inactive Date Active Past Medical History Illness Codes Condition Status Onset Date Resolved Date Attention and concentration deficit ICD-9: 799.51 ICD-10: R41.840 Active 04/28/2016 Unknown Allergic rhinitis due to pollen ICD-9: 477.9 ICD-10: J30.1 Active 11/17/2017 Unknown Cutaneous abscess of chest wall ICD-9: 682.2 ICD-10: L02.213 Active 11/03/2017 Unknown Dysuria ICD-9: 788.1 ICD-10: R30.0 Active 10/05/2017 Unknown Allergic contact dermatitis due to plants, except food ICD-9: 692.6 ICD-10: L23.7 Active 09/16/2016 Unknown 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 Active 07/25/2016 Unknown Pain in left leg ICD-9 : 729.5 ICD-10: M79.605 Active 07/25/2016 Unknown Encounter for general adult medical examination without abnormal findings ICD-9: V70.9 ICD-10: Z00.00 Active 08/20/2015 Unknown Problems Condition Codes Effective Dates Condition Status Attention and concentration deficit ICD-9: 799.51 ICD-10: R41.840 04/28/2016 Active Allergic rhinitis due to pollen ICD-9: 477.9 ICD-10: J30.1 11/17/2017 Active Cutaneous abscess of chest wall ICD-9: 682.2 ICD-10: L02.213 11/03/2017 Active Dysuria ICD-9: 788.1 ICD-10: R30.0 10/05/2017 Active Allergic contact dermatitis due to plants, except food ICD-9: 692.6 ICD-10: L23.7 09/16/2016 Active 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 07/25/2016 Active Pain in left leg ICD-9 : 729.5 ICD-10: M79.605 07/25/2016 Active Encounter for general adult medical examination without abnormal findings ICD-9: V70.9 ICD-10: Z00.00 08/20/2015 Active Medications Medication Codes Instructions Start Date Stop Date Status Fill Instructions Adderall 5 mg tablet RxNorm: 437142 3 Tablet(s) (15mg) PO QAM and 2 Tablet (10mg) PO QPM 11/20/2017 12/19/2017 Active Kenalog 40 mg/mL suspension for injection RxNorm: 2456484 Milliliter(s) Inj 11/17/2017 11/17/2017 Inactive doxycycline hyclate 100 mg capsule RxNorm: 6694743 1 Capsule(s) PO BID 11/14/2017 11/23/2017 Active doxycycline hyclate 100 mg capsule RxNorm: 5737692 1 Capsule(s) PO BID 11/14/2017 11/13/2017 Inactive Prozac 10 mg capsule RxNorm: 413472 1 Capsule(s) PO daily as needed for PMS symptoms 11/03/2017 10/28/2018 Active Keflex 500 mg capsule RxNorm: 320157 1 Capsule(s) PO TID 201711/12/2017 Inactive Bactrim DS 800 mg-160 mg tablet RxNorm: 956866 1 Tablet(s) PO BID 10/10/2017 10/09/2017 Inactive Bactrim DS 800 mg-160 mg tablet RxNorm: 307878 1 Tablet(s) PO BID 10/10/2017 10/16/2017 Inactive Prozac 10 mg capsule RxNorm: 657618 1 Capsule(s) PO as needed for PMS symptoms 04/26/2017 09/22/2017 Inactive Adderall 5 mg tablet RxNorm: 569786 3 Tablet(s) (15mg) PO QAM and 2 Tablet (10mg) PO QPM 12/19/2016 01/17/2017 Inactive Prozac 10 mg capsule RxNorm: 328441 1 Capsule(s) PO as needed for PMS symptoms 11/23/2016 04/21/2017 Inactive Adderall 5 mg tablet RxNorm: 292727 3 Tablet(s) (15mg) PO QAM and 2 Tablet (10mg) PO QPM 10/18/2016 11/16/2016 Inactive Prozac 10 mg capsule RxNorm: 799576 1 Capsule(s) PO as needed for PMS symptoms 10/18/2016 11/16/2016 Inactive Adderall 5 mg tablet RxNorm: 066689 3 Tablet(s) (15mg) PO QAM and 2 Tablet (10mg) PO QPM 09/16/2016 10/15/2016 Inactive Adderall 5 mg tablet RxNorm: 460155 3 Tablet(s) (15mg) PO QAM and 1 Tablet (5mg) PO QPM 07/25/2016 08/23/2016 Inactive Adderall 5 mg tablet RxNorm: 017390 3 Tablet(s) (15mg) PO QAM and 1 Tablet (5mg) PO QPM 06/20/2016 07/24/2016 Inactive Adderall 5 mg tablet RxNorm: 211758 3 Tablet(s) 15mg PO QAM and 1 tab 5mg in the pm 04/29/2016 05/28/2016 Inactive Adderall 5 mg tablet RxNorm: 186522 3 Tablet(s) 15mg PO QAM and 1 tab 5mg in the pm 03/25/2016 04/23/2016 Inactive Adderall 5 mg tablet RxNorm: 552241 3 Tablet(s) 15mg PO QAM and 1 tab 5mg in the pm 02/17/2016 03/17/2016 Inactive Adderall 5 mg tablet RxNorm: 438670 3 Tablet(s) 15mg PO QAM and 1 tab 5mg in the pm 01/20/2016 02/16/2016 Inactive Adderall 5 mg tablet RxNorm: 831373 3 Tablet(s) 15mg PO QAM and 1 tab 5mg in the pm 12/16/2015 01/14/2016 Inactive Adderall 5 mg tablet RxNorm: 584960 3 Tablet(s) 15mg PO QAM and 1 tab 5mg in the pm 11/11/2015 12/10/2015 Inactive Adderall 10 mg tablet RxNorm: 528200 1 Tablet(s) PO daily 201510/20/2015 Inactive Adderall 10 mg tablet RxNorm: 076718 1 Tablet(s) PO daily 201510/08/2015 Inactive Adderall 10 mg tablet RxNorm: 603487 1 Tablet(s) PO daily 201509/08/2015 Inactive Adderall 5 mg tablet RxNorm: 972271 1 Tablet(s) PO daily 201508/31/2015 Inactive biotin oral RxNorm: 1588 oral No Start Date Active Aspirin Low Dose 81 mg tablet,delayed release RxNorm: 835297 1 Tablet(s) PO daily No Start Date Active Chi-Mag Zinc II oral RxNorm: 4018 oral No Start Date Active multivitamin tablet RxNorm: 1 Tablet(s) PO daily No Start Date Active magnesium oral RxNorm : 6574 oral No Start Date Active Prozac 10 mg capsule RxNorm: 510123 1 Capsule(s) PO as needed for PMS symptoms No Start Date 09/12/2016 Inactive Medication Administered Medication Codes Instructions Start Date Status Kenalog 40 mg/mL suspension for injection RxNorm: 8012467 Milliliter 11/17/2017 No longer Active Immunizations No Immunization data Assessments Condition Codes Effective Dates Attention and concentration deficit ICD-10: R41.840 ICD-9: 799.51 11/20/2017 Allergic rhinitis due to pollen ICD-10: J30.1 ICD-9: 477.9 11/17/2017 Cutaneous abscess of chest wall ICD-10: L02.213 ICD-9: 682.2 11/03/2017 Dysuria ICD-10: R30.0 ICD-9: 788.1 10/05/2017 Allergic contact dermatitis due to plants, except food ICD- 10: L23.7 ICD-9: 692.6 09/16/2016 Pain in left leg ICD-10: M79.605 ICD-9: 729.5 07/25/2016 Other specified coagulation defects ICD-10: D68.8 ICD-9: 286.9 07/25/2016 Encounter for general adult medical examination without abnormal findings ICD-10: Z00.00 ICD-9: V70.9 08/21/2015 Reason For Visit Reason For Visit Effective Dates Notes medication follow up 11/20/2017 cyst 11/03/2017 disturbances of thinking 09/16/2016 lower leg pain 07/25/2016 disturbances of thinking 04/29/2016 disturbances of thinking 09/25/2015 memory loss 08/21/2015 Results Observation Observation Code Item Item Code Result Date Culture Urine [id number] URINE CULTURE SEE NOTES 10/09/2017 Culture Urine [id number] Continued Results 10/09/2017 Urine Culture Ucult Complete >100,000 col/ml aerobic growth sent to ref lab 10/07/2017 Cbc With Differential Ord2 WBC 5.21 K/ul 08/25/2015 Cbc With Differential Ord2 RBC 4.21 M/ul 08/25/2015 Cbc With Differential Ord2 HGB 13.7 g/dl 08/25/2015 Cbc With Differential Ord2 HCT 40.6 % 08/25/2015 Cbc With Differential Ord2 Neut% 52.2 % 08/25/2015 Cbc With Differential Ord2 Lymph% 35.9 % 08/25/2015 Cbc With Differential Ord2 MCV 96.4 fl 08/25/2015 Cbc With Differential Ord2 O'Brien% 10.2 % 08/25/2015 Cbc With Differential Ord2 [...] 1.87 K/ul 08/25/2015 Cbc With Differential Ord2 O'Brien ABS# 0.5 K/ul 08/25/2015 Cbc With Differential Ord2 Eos ABS# 0.1 K/ul 08/25/2015 Cbc With Differential Ord2 Baso ABS# 0.0 K/ul 08/25/2015 Cbc With Differential Ord2 New Analyzer Notice Please note new ref ranges starting 04-22-2015 due to implemntation of new five part differential hematolgy analyzer. 08/25/2015 Lipid Ord30 CHOL 189 mg/dL 08/25/2015 Lipid Ord30 HDL 76.0 mg/dl 08/25/2015 Lipid Ord30 TRIG 57 mg/dL 08/25/2015 Lipid Ord30 LDL 102 mg/dL 08/25/2015 Lipid Ord30 C/HDL 2.5 Ratio 08/25/2015 Tsh Ord6 hTSH II 2.56 uIU/mL 08/25/2015 Comp Metabolic Jru826 NA 137 mEq/L 08/25/2015 Comp Metabolic Yvb904 K 4.3 mEq/L 08/25/2015 Comp Metabolic Iol897 CL 104 mEq/L 08/25/2015 Comp Metabolic Ysp878 CO2 30.0 mEq/L 08/25/2015 Comp Metabolic Axh769 ANION GAP 7 08/25/2015 Comp Metabolic Jko272 GLUCOSE 95 mg/dL 08/25/2015 Comp Metabolic Ney679 Creat 0.9 mg/dL 08/25/2015 Comp Metabolic Orw441 eGFR 75 ml/min/1.73m2 08/25/2015 Comp Metabolic Suo396 BUN 13 mg/dL 08/25/2015 Comp Metabolic Pil515 B/C Ratio 15.1 Ratio 08/25/2015 Comp Metabolic Wdh813 CALCIUM 9.2 mg/dL 08/25/2015 Comp Metabolic Pfu157 ALK PHOS 45 U/L 08/25/2015 Comp Metabolic Xhu963 AST(SGOT) 18 U/L 08/25/2015 Comp Metabolic Wix182 ALT(SGPT) 14 U/L 08/25/2015 Comp Metabolic Shl178 BILI T 0.6 mg/dL 08/25/2015 Comp Metabolic Laq982 ALBUMIN 4.2 g/dL 08/25/2015 Comp Metabolic Ltw666 TPRO 6.5 g/dL 08/25/2015 Comp Metabolic Vvf730 GLOB 2.4 g/dL 08/25/2015 Comp Metabolic Hkq906 A/G Ratio 1.8 Ratio 08/25/2015 Comp Metabolic Mmo354 Osmo 274 mOsmo 08/25/2015 Review of Systems System Result Effective Dates Constitutional No recent illness 2017 Constitutional No fever 11/20/2017 Eyes No eye erythema 11/20/2017 Ears/Nose/Throat/Neck No nasal allergies 11/20/2017 Ears/Nose/Throat/Neck No nasal discharge 11/20/2017 Cardiovascular No chest pain/pressure Cardiovascular No dyspnea 11/20/2017 Cardiovascular No palpitations 2017 Respiratory No cough 11/20/2017 Respiratory No dyspnea 11/20/2017 Gastrointestinal No abdominal pain 2017 Musculoskeletal No joint complaint 2017 Neurologic No alteration of consciousness 11/20/2017 Neurologic No mental status change 2017 Cardiovascular No near-syncope/dizziness 11/20/2017 Constitutional No recent illness 2017 Constitutional No chills 11/03/2017 Constitutional No diaphoresis 11/03/2017 Constitutional No fever 11/03/2017 Eyes No eye erythema 11/03/2017 Ears/Nose/Throat/Neck No nasal discharge 11/03/2017 Ears/Nose/Throat/Neck No nasal allergies 11/03/2017 Cardiovascular No chest pain/pressure Cardiovascular No dyspnea 11/03/2017 Respiratory No cough 11/03/2017 Gastrointestinal No abdominal pain 2017 Dermatologic cyst 11/03/2017 Neurologic No alteration of consciousness 11/03/2017 Neurologic No mental status change 2017 Constitutional No recent illness 2016 Constitutional No [...] 1994 Constitutional general appearance Overall: well developed 11/20/2017 None Full Exam - General 1994 Constitutional general appearance Overall: in no acute distress 11/20/2017 None Full Exam - General 1994 Constitutional general appearance Overall: well nourished 11/20/2017 None Full Exam - General 1994 Eyes conjunctiva /eyelids Overall: conjunctiva clear 11/20/2017 None Full Exam - General 1994 Eyes conjunctiva /eyelids Overall: eyelids normal 11/20/2017 None Full Exam - General 1994 Ears/Nose/Throat lips/teeth/gingiva Overall: benign lips 11/20/2017 None Full Exam - General 1994 Ears/Nose/Throat oral cavity/pharynx/larynx Overall: oral mucosa clear 11/20/2017 None Full Exam - General 1994 Respiratory auscultation Overall: breath sounds clear bilaterally 11/20/2017 None Full Exam - General 1994 Respiratory respiratory effort/rhythm Overall: no retractions 11/20/2017 None Full Exam - General 1994 Respiratory respiratory effort/rhythm Overall: normal rate 11/20/2017 None Full Exam - General 1994 Cardiovascular extremities Overall: no clubbing 11/20/2017 None Full Exam - General 1994 Cardiovascular auscultation of heart Overall: regular rate 11/20/2017 None Full Exam - General 1994 Cardiovascular auscultation of heart Overall: normal heart sounds 11/20/2017 None Full Exam - General 1994 Musculoskeletal spine, ribs and pelvis Overall: good posture 11/20/2017 None Full Exam - General 1994 Musculoskeletal gait and station Overall: normal gait 11/20/2017 None Full Exam - General 1994 Musculoskeletal gait and station Overall: normal station 11/20/2017 None Full Exam - General 1994 Musculoskeletal head and neck Overall: head atraumatic 11/20/2017 None Full Exam - General 1994 Neurologic gait Overall: no ataxia, no unsteadiness 11/20/2017 None Full Exam - General 1994 Neurologic cranial nerves Overall: crainial nerves 2 - 12 grossly intact 11/20/2017 None Full Exam - General 1994 Psychiatric orientation/consciousness Overall: oriented to person, place and time 11/20/2017 None Full Exam - General 1994 Psychiatric mood and affect Overall: normal mood and affect 11/20/2017 None Full Exam - General 1994 Psychiatric appearance Overall: well-groomed, good eye contact 11/20/2017 None Full Exam - General 1994 Eyes conjunctiva /eyelids Overall: cornea clear 11/20/2017 None Full Exam - Dermatology Constitutional general appearance Overall: well nourished 11/03/2017 None Full Exam - Dermatology Constitutional general appearance Overall: well developed 11/03/2017 None Full Exam - Dermatology Constitutional general appearance Overall: in no acute distress 11/03/2017 None Full Exam - Dermatology Eyes conjunctiva/ eyelids Overall: clear conjunctiva bilaterally 11/03/2017 None Full Exam - Dermatology Eyes conjunctiva/ eyelids Overall: clear corneas 11/03/2017 None Full Exam - Dermatology Eyes conjunctiva/ eyelids Overall: normal eyelids 11/03/2017 None Full Exam - Dermatology Ears/Nose/Throat lips/teeth/gingiva Overall: benign lips 11/03/2017 None Full Exam - Dermatology Respiratory respiratory effort/rhythm Overall: no retractions 11/03/2017 None Full Exam - Dermatology Respiratory respiratory effort/rhythm Overall: normal rate 11/03/2017 None Full Exam - Dermatology Musculoskeletal head and neck Overall: head atraumatic 11/03/2017 None Full Exam - Dermatology Integument insp & palp - chest/axillae Lesion: cyst 11/03/2017 None Full Exam - Dermatology Integument insp & palp - chest/axillae Lesion: pustule 11/03/2017 None Full Exam - Dermatology Integument insp & palp - chest/axillae Location: on the mid chest 11/03/2017 None Full Exam - Dermatology Integument insp & palp - chest/axillae Color: erythematous 11/03/2017 None Full Exam - Dermatology Integument insp & palp - chest/axillae Appearance: tense 11/03/2017 None Full Exam - Dermatology Integument insp & palp - chest/axillae Appearance: tender 11/03/2017 None Full Exam - Dermatology Integument insp & palp - chest/axillae Appearance: easily ruptured 11/03/2017 None Full Exam - Dermatology Psychiatric orientation Overall: oriented to person, place and time 11/03/2017 None Full Exam - Dermatology Psychiatric mood and affect Overall: normal mood and affect 11/03/2017 None Full Exam - General 1994 Constitutional [...] well-groomed, good eye contact 08/21/2015 None Procedures Procedure Codes Date THER/PROPH/DIAG INJ SC/IM CPT-4: 60517 11/17/2017 TRIAMCINOLONE ACET INJ NOS CPT-4: J3301 11/17/2017 URINALYSIS NONAUTO W/O SCOPE CPT-4: 99931 10/05/2017 Vital Signs Date Vital 11/20/2017 Blood Pressure 1: 110/68 Code : 8480-6 BMI: 29.8 Code : 31487-5 Heart Rate 1 : 102 bpm Height: 5'7" SpO2: 98% Weight: 190 lbs 11/03/2017 Blood Pressure 1: 120/78 Code : 8480-6 Heart Rate 1: 86 bpm Height: SpO2: 98% Weight: 09/16/2016 Blood Pressure 1: 124/80 Code : 8480-6 BMI: 26.5 Code : 16153-4 Heart Rate 1 : 76 bpm Height: 5'7" SpO2: 99% Weight: 169 lbs 07/25/2016 Blood Pressure 1: 122/70 Code : 8480-6 Heart Rate 1: 76 bpm Height: 5'7" SpO2: 98% Weight: 04/29/2016 Blood Pressure 1: 112/66 Code : 8480-6 Heart Rate 1: 78 bpm Height: SpO2: 98% Weight: 09/25/2015 Blood Pressure 1: 104/68 Code : 8480-6 BMI: 27.1 Code : 77604-3 Heart Rate 1 : 77 bpm Height: 5'7" SpO2: 99% Weight: 173 lbs 08/21/2015 Blood Pressure 1: 110/70 Code : 8480-6 BMI: 27.9 Code : 73988-1 Heart Rate 1 : 74 bpm Height: 5'7" SpO2: 98% Weight: 178 lbs Functional Status No Functional Status data History of Present Illness Symptom Name Status Result Effective Date Notes medication follow up Additional Comments medication use 11/20/2017 None medication follow up Location oral intake 11/20/2017 None cyst Quality acute None cyst Onset and Resolution sudden in onset 11/03/2017 None cyst Location on the chest 11/03/2017 None cyst Severity moderate 11/03/2017 None cyst Exacerbating Factors direct pressure 11/03/2017 None cyst Pertinent Findings pain 11/03/2017 None cyst Pertinent Findings redness 11/03/2017 None cyst Pertinent Findings tenderness 11/03/2017 None cyst Pertinent Findings warmth 11/03/2017 None disturbances of thinking Quality chronic 09/16/2016 None [...] data Encounters Encounter Performer Location Codes Date 48197 EST. PATIENT, LEVEL III Diagnosis: Attention and concentration deficit[ICD10: R41.840] Brook Salmon MD, [facility] CPT-4: 30984 11/20/2017 30363 EST. PATIENT, LEVEL III Diagnosis: Cutaneous abscess of chest wall[ICD10: L02.213] Brook Salmon MD, [facility] CPT-4: 97983 11/03/2017 10305 EST. PATIENT, LEVEL IV Diagnosis: Attention and concentration deficit[ICD10: R41.840] Diagnosis: Allergic contact dermatitis due to plants, except food[ICD10: L23.7] Brook Salmon MD, [facility] CPT-4: 09714 09/16/2016 35435 EST. PATIENT, LEVEL IV Diagnosis: Pain in left leg[ICD10: M79.605] Diagnosis: Other specified coagulation defects[ICD10: D68.8] Brook Salmon MD, [facility] CPT-4: 22711 07/25/2016 90458 EST. PATIENT, LEVEL IV Diagnosis: Attention and concentration deficit[ICD10: R41.840] Brook Salmon MD, [facility] CPT-4: 73009 04/29/2016 05585 EST. PATIENT, LEVEL IV Diagnosis: Attention and concentration deficit[ICD10: R41.840] Brook Salmon MD, [facility] CPT-4: 24883 09/25/2015 ([id number]) OFFICE VISIT, NEW - LEVEL 4 Diagnosis: Encounter for general adult medical examination without abnormal findings[ICD10: Z00.00] Diagnosis: Attention and concentration deficit[ICD10: R41.840] Brook Salmon MD, [facility] CPT-4: 05878 08/21/2015 Plan of Care Planned Activity Notes Codes Status Date Appointment: Brook Nolan WPtel: [facility] ([facility] min) Moderate 11/20/2017 Patient Education: Patient Medication Summary Completed 11/20/2017 Appointment: Injection 11/17/2017 Patient Education: Patient Medication Summary Completed 11/17/2017 Appointment: Brook Nolan WPtel: [address] [place], [place] [id number] (15 min) Moderate 11/03/2017 Patient Education: Patient Medication Summary Completed 11/03/2017 Appointment: Lab Draw 10/05/2017 Patient Education: Patient Medication Summary Completed 10/05/2017 Appointment: Brook Nolan WPtel: [facility] (30 min) Complex 09/16/2016 Patient Education: Patient Medication Summary Completed 09/16/2016 Patient Education: Obesity Completed 09/16/2016 Care Plan: VASCULAR STUDY Pending 08/18/2016 Appointment: Brook Nolan WPtel: [facility] (15 min) Moderate 07/25/2016 Patient Education: Patient Medication Summary Completed 07/25/2016 Appointment: Brook Nolan WPtel: [facility] ([facility] min) Complex 04/29/2016 Patient Education: Patient Medication Summary Completed 04/29/2016 Appointment: Yumi Hallman WPtel: [phone] (30 min) Complex 09/25/2015 Patient Education: Patient Medication Summary Completed 09/25/2015 Patient Education: Patient Medication Summary Completed 08/21/2015 Patient Education: Obesity Completed 08/21/2015 Instructions No Instructions
--- OUTSIDE RECORDS SUMMARY | 2017-11-24 18:16 | XMS REPORT | Continuity of Care Document ---
Author Author [facility] Organization [facility] Address Unknown Phone Unavailable Allergies There is no data. Medications There is no data. Problems Date Dx Coded Attending Type Code Diagnosis Diagnosed By 08/21/2014 SHARON MAGUIRE DO Ot V76.12 2014 SHARON MAGUIRE DO Ot V76.12 06/22/2015 SHARON MAGUIRE DO Ot N92.6 06/22/2015 SHARON MAGUIRE DO Ot R92.2 06/22/2015 SHARON MAGUIRE DO Ot Z12.39 06/25/2015 MAGUIRE SHARON CHIRINOS Ot N92.6 06/25/2015 MAGUIRE SHARON CHIRINOS Ot R92.2 06/25/2015 CURRIE SHARON CHIRINOS Ot Z12.39 07/06/2015 MAGUIRE SHARON CHIRINOS Ot N92.6 07/06/2015 MAGUIRE SHARON CHIRINOS Ot R92.2 07/06/2015 SHARON MAGUIRE DO Ot Z12.39 07/15/2015 Ot R92.8 07/29/2015 Ot R92.8 OTH ABN AND INCONCLUSIVE FINDINGS ON DX 01/26/2016 SHARON MAGUIRE DO Ot V76.12 OTH SCREEN MAMMO-MALIGN NEOPLASM OF STAN 01/26/2016 SHARON MAGUIRE DO Ot N92.6 IRREGULAR MENSTRUATION, UNSPECIFIED 01/26/2016 SHARON MAGUIRE DO Ot R92.2 INCONCLUSIVE MAMMOGRAM 01/26/2016 SHARON MAGUIRE DO Ot Z12.39 ENCOUNTER FOR OTH SCREENING FOR MALIGNAN 01/26/2016 Ot R92.8 OTH ABN AND INCONCLUSIVE FINDINGS ON DX 02/04/2016 SHARON MAGUIRE DO Ot R92.8 OTH ABN AND INCONCLUSIVE FINDINGS ON DX 07/25/2016 SHARON MAGUIRE DO Ot V76.12 OTH SCREEN MAMMO-MALIGN NEOPLASM OF STAN 07/25/2016 SHARON MAGUIRE DO Ot N92.6 IRREGULAR MENSTRUATION, UNSPECIFIED 07/25/2016 SHARON MAGUIRE DO Ot R92.2 INCONCLUSIVE MAMMOGRAM 07/25/2016 SHARON MAGUIRE DO Ot Z12.39 ENCOUNTER FOR OTH SCREENING FOR MALIGNAN 07/25/2016 Ot R92.8 OTH ABN AND INCONCLUSIVE FINDINGS ON DX 07/25/2016 SHARON MAGUIRE DO Ot R92.8 OTH ABN AND INCONCLUSIVE FINDINGS ON DX 08/17/2016 ALBERT TYLER APRN Ot 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 08/17/2016 ALBERT TYLER APRN Ot R22.42 LOCALIZED SWELLING, MASS AND LUMP, LEFT 11/17/2016 ALBERT TYLER APRN Ot Z12.31 ENCNTR SCREEN MAMMOGRAM FOR MALIGNANT NE 11/30/2016 ALBERT TYLER APRN Ot Z12.31 ENCNTR SCREEN MAMMOGRAM FOR MALIGNANT NE 12/20/2016 ALBERT TYLER APRN Ot N64.89 OTHER SPECIFIED DISORDERS OF BREAST 12/29/2016 ALBERT TYLER MANAGER OUTREACH Ot N64.89 OTHER SPECIFIED DISORDERS OF BREAST 07/17/2017 ALBERT TYLER MANAGER OUTREACH Ot N64.89 OTHER SPECIFIED DISORDERS OF BREAST 07/17/2017 ALBERT TYLER APRN Ot R92.8 OTH ABN AND INCONCLUSIVE FINDINGS ON DX 07/27/2017 ALBERT TYLER MANAGER OUTREACH Ot N64.89 OTHER SPECIFIED DISORDERS OF BREAST Procedures There is no data. Results There is no data. Encounters ACCT No. Visit Date/Time Discharge Status Pt. Type Provider Facility Loc./Unit Complaint [id number] 07/14/2017 08:30:00 07/14/2017 23:59:59 CLS Outpatient ALBRET TYLER APRN [facility] RAD RIGHT BREAST ASYMMETRY-6 MONTH FU [id number] 06/20/2017 10:18:00 06/20/2017 23:59:59 CLS Preadmit ALBERT TYLER APRN [facility] RAD BREAST ASYMMETRY 6 MONTH F/U [id number] 12/19/2016 07:46:00 12/19/2016 23:59:59 CLS Outpatient ALBERT TYLER APRN [facility] RAD ASYMMETRY [id number] 11/11/2016 10:35:00 11/11/2016 23:59:59 CLS Outpatient ALBERT TYLER APRN [facility] RAD SCREENING [id number] 07/25/2016 11:59:00 07/25/2016 23:59:59 CLS Outpatient ALBERT TYLER MANAGER OUTREACH [facility] RAD LEG SWELLING, FACTOR 5 [id number] 01/26/2016 07:25:00 01/26/2016 23:59:59 CLS Outpatient SHARON MAGUIER DO [facility] RAD ABNORMAL MAMMO OF LT BREAST [id number] 06/19/2015 12:51:00 06/19/2015 23:59:59 CLS Outpatient SHARON MAGUIRE DO [facility] RAD SCREENING, MATIAS [id number] 09/19/2013 15:13:00 09/19/2013 23:59:59 CLS Outpatient SHARON MAGUIRE DO [facility] RAD SCREENING [id number] 07/13/2015 08:31:00 Document Registration [id number] 11/21/2016 09:32:04 11/21/2016 23:59:59 CLS Outpatient
== END 2017-11-24 14:10 | disposition home or self-care (01) ==
LOC: SDC 10:13
PROVIDERS: ATTEND Surgery
DX: L72.3 Sebaceous cyst (principal); D68.2 Hereditary deficiency of other clotting factors; Z11.2 Encounter for screening for other bacterial diseases; Z79.82 Long term (current) use of aspirin; Z79.899 Other long term (current) drug therapy; Z87.891 Personal history of nicotine dependence
CPT/HCPCS: 84703; 87081

== ENCOUNTER → 2018-09-05 | Outpatient (CLI) | payer BC ==
[~2018-09-05] MED LIST changes: +ACHD5005 PO; +CEPH250T PO
--- NOTE | 2018-09-05 09:38 | Diagnostic Imaging Report ---
INDICATION: Followup right breast architectural distortion. COMPARISON: 07/14/2017 and 11/11/2016. TECHNIQUE: 2D and 3D bilateral diagnostic mammography was performed with CAD. FINDINGS: Both breasts remain heterogeneously dense, limiting the sensitivity of mammography. The area of questionable architectural distortion and density in the upper posterior aspect of the right breast on the MLO view appears stable and is likely superimposed tissue. No new mass is seen. No malignant appearing microcalcifications are identified. There are scattered benign calcifications noted. The axillae are unremarkable. IMPRESSION: Stable bilateral mammograms. The patient may return to routine annual screening mammography. ACR BI-RADS Category 2: Benign findings. Result letter will be mailed to the patient. Note: At least 10% of breast cancer is not imaged by mammography. Dictated by: Dictated on workstation # [id number]
== END ==
LOC: RAD 07:57
PROVIDERS: ATTEND Nurse Practitioner Family
DX: N64.89 Other specified disorders of breast (principal)
CPT/HCPCS: 77066

== ENCOUNTER → 2021-06-17 | Outpatient (CLI) | payer BC ==
--- NOTE | 2021-06-17 12:46 | Diagnostic Imaging Report ---
INDICATION: Routine screening. Comparison is made with prior mammogram from 09/05/2018 and 11/11/2016. 2-D and 3-D bilateral screening mammography was performed with CAD. Both breasts are heterogeneously dense, limiting the sensitivity of mammography. The parenchymal pattern appears stable. No mass or malignant-appearing microcalcifications are seen. Axillae are unremarkable. IMPRESSION: No mammographic features suspicious for malignancy are identified. ACR BI-RADS Category 1: Negative. Result letter will be mailed to the patient. Note: At least 10% of breast cancer is not imaged by mammography. BI-RADS Category 1 Dictated by: Dictated on workstation # [id number]
== END ==
LOC: RAD 10:08
PROVIDERS: ATTEND Family Medicine
DX: Z12.31 Encounter for screening mammogram for malignant neoplasm of breast (principal)
CPT/HCPCS: 77063; 77067

== ENCOUNTER → 2022-10-17 | Outpatient (CLI) | payer BC ==
--- NOTE | 2022-10-17 13:05 | Diagnostic Imaging Report ---
INDICATION: Routine screening. COMPARISON: 06/17/2021 and 09/05/2018. TECHNIQUE: 2D and 3D bilateral screening mammography was performed with CAD. FINDINGS: Both breasts are heterogeneously dense, limiting the sensitivity of mammography. The parenchymal pattern is stable. No mass or malignant-appearing microcalcifications are seen. The axillae are unremarkable. IMPRESSION: No mammographic features suspicious for malignancy are identified. ACR BI-RADS Category 1: Negative. Result letter will be mailed to the patient. Note: At least 10% of breast cancer is not imaged by mammography. Dictated by: Dictated on workstation # [id number]
== END ==
LOC: RAD 08:47
PROVIDERS: ATTEND Family Medicine
DX: Z12.31 Encounter for screening mammogram for malignant neoplasm of breast (principal)
CPT/HCPCS: 77063; 77067